=== PATIENT | female | born 1965 ===

== ENCOUNTER 2018-08-13 10:41 | Outpatient (CLI) | payer SELFPAY | END 2018-08-13 10:42 | disposition home or self-care (01) | LOC: C.USIC 10:42 ==

== ENCOUNTER 2018-09-09 10:16 | Outpatient (CLI) | payer OTHER | END 2018-09-09 10:17 | disposition home or self-care (01) | LOC: C.MAMMO 10:16 | DX: Z12.39 Encounter for other screening for malignant neoplasm of breast (principal) ==